=== PATIENT | male | born 1955 | race Caucasian/White ===

== ENCOUNTER 2017-06-28 07:03 | Emergency (ER) | payer BC ==
--- NOTE | 2017-06-28 07:10 | ERNOTE ---
<TristinChloé - Last Filed: 06/28/17 07:32> Medical Problem HPI - General Time Seen by Provider: 06/28/17 07:05 Source: patient Exam Limitations: no limitations - Immun/Allergies/Home Medications Allergies/Adverse Reactions: Allergies Penicillins Allergy (Verified 06/28/17 07:22) Sulfa (Sulfonamide Antibiotics) Allergy (Verified 06/28/17 07:22) Home Medications: HOME MEDICATIONS Calcium Carbonate [Calcium] 1,200 mg PO BID 11/25/14 [Last Taken Unknown] Cholecalciferol (Vitamin D3) [Vitamin D] 4,000 unit PO BID 11/25/14 [Last Taken Unknown] Simvastatin [Zocor] 40 mg PO DAILY 11/25/14 [Last Taken Unknown] Omeprazole 20 mg PO DAILY 08/23/15 [Last Taken Unknown] Prednisone 2.5 mg PO DAILY 08/23/15 [Last Taken Unknown] Cyanocobalamin (Vitamin B-12) [Vitamin B12] 1,000 mcg PO DAILY 06/28/17 [Last Taken Unknown] Etanercept [Enbrel] 50 mg SQ DAILY 06/28/17 [Last Taken Unknown] Folic Acid 1 mg PO DAILY 06/28/17 [Last Taken Unknown] Hydroxychloroquine Sulfate [Plaquenil] 200 mg PO DAILY 06/28/17 [Last Taken Unknown] Methotrexate Sodium [Methotrexate] 2.5 mg PO DAILY 06/28/17 [Last Taken Unknown] Ondansetron [Zofran Odt] 4 mg PO Q6H PRN 5 Days #20 tab 06/28/17 [Last Taken Unknown] sulfaSALAzine [Azulfidine] 500 mg PO BID 06/28/17 [Last Taken Unknown] traMADol HCL [Tramadol HCl] 50 mg PO TID 7 Days #10 tablet 06/28/17 [Last Taken Unknown] - History of Present History Narrative: Patient presents to the emergency room via private vehicle with complaint of chest pain in the substernal region without any radiation which began at 0600 today. He just started Enbrel for rheumatoid arthritis he denies any shortness of breath palpitations or diaphoresis Review of Systems - Review of Systems Constitutional: Present: no symptoms reported EYE: Present: no symptoms reported ENT: Present: no symptoms reported Respiratory: Present: no symptoms reported Cardiology: Present: See HPI Gastrointestinal/Abdominal: Present: no symptoms reported Genitourinary: Present: no symptoms reported - Patient's Past Medical History Patient History - Medical: No pertinent hx Patient History - Cancer: No Hx of Cancer Patient History - Surgical Procedures: Other - Hernia repair, Hyperparathyroids removed, pacemaker. - Social History Living Situations: spouse Alcohol Use: none Physical Exam - Physical Exam General Appearance: Present: wd/wn, alert, no apparent distress Head Exam: Present: normal inspection, no evidence of injury Ears, Nose, Throat: Present: normal ENT inspection Neck: Present: normal inspection, nontender Respiratory: Present: no respiratory distress, normal breath sounds, no accessory muscle use, chest nontender, lungs clear Cardiovascular/Chest: Present: regular rate, rhythm, no murmur, normal peripheral pulses ED Progress - Vital Signs Patient's Vital Signs:: I have reviewed the patient's vital signs. - Transfer of Care Physician Sign Out: Chloé Crow Receiving Physician: Jaci Salas Departure - Departure Clinical Impression: Cholelithiasis with acute cholangitis without biliary obstruction Chest pain Qualifiers: Chest pain type: other chest pain Qualified Code(s): R07.89 - Other chest pain ; R07.8 - Other chest pain Disposition: Home self-care Condition: Stable Instructions: Cholelithiasis Additional Instructions: you are scheduled at 7 am on Friday morning you are to have nothing to eat or drink prior to the test in the morning. Referrals: Cheko Gonzalez MD [Primary Care Provider] - Joseluis Rodrigues MD [Staff Physician] - 07/02/17 (call for appointment time on Friday ) Prescriptions: Ondansetron [Zofran Odt] 4 mg PO Q6H PRN 5 Days #20 tab PRN Reason: nausea traMADol HCL [Tramadol HCl] 50 mg PO TID 7 Days #10 tablet <Jaci Salas - Last Filed: 06/28/17 13:56> Medical Problem HPI - Narrative Date of Service: 06/28/17 ED Progress - Date and Time Seen: Date and Time: 06/28/17 09:49 Patient seen and re-examined. - Results and Orders Patient's Lab Results:: I have reviewed the patient's lab results. Results and Orders: Laboratory Tests 06/28/17 06/28/17 06/28/17 07:08 07:15 07:15 WBC 6.3 RBC 4.61 L Hgb 14.3 Hct 43.2 MCV 93.7 MCH 31.0 MCHC 33.1 RDW 13.2 Plt Count 227 MPV 10.3 H Immature Gran % (Auto) 1.40 H Immature Gran # (Auto) 0.09 H Neutrophils % 64.4 Lymphocytes % 19.5 L Monocytes % 11.5 H Eosinophils % 2.4 Basophils % 0.8 Nucleated RBC % 0.0 Neutrophils # 4.0 Lymphocytes # 1.2 L Monocytes # 0.7 Eosinophils # 0.2 D-Dimer Sodium 145 H Plasma Sodium 145 H Potassium 3.9 Chloride 107 H Anion Gap 15.5 H BUN 24 H Creatinine 1.28 Est GFR (Non-Af Amer) 61 D BUN/Creatinine Ratio 18.8 Random Glucose 128 H Calcium 8.4 Calcium Adj for Albumin 8.4 Total Bilirubin 0.3 AST 21 ALT 15 L Alkaline Phosphatase 63 Troponin I Less than 0.017 Total Protein 6.8 Albumin 3.6 TSH 1.782 06/28/17 07:15 WBC RBC Hgb Hct MCV MCH MCHC RDW Plt Count MPV Immature Gran % (Auto) Immature Gran # (Auto) Neutrophils % Lymphocytes % Monocytes % Eosinophils % Basophils % Nucleated RBC % Neutrophils # Lymphocytes # Monocytes # Eosinophils # D-Dimer 0.37 Sodium Plasma Sodium Potassium Chloride Anion Gap BUN Creatinine Est GFR (Non-Af Amer) BUN/Creatinine Ratio Random Glucose Calcium Calcium Adj for Albumin Total Bilirubin AST ALT Alkaline Phosphatase Troponin I Total Protein Albumin TSH - Vital Signs Vital Signs: Vital Signs 06/28/17 06/28/17 06/28/17 07:12 07:20 07:28 Temperature 34.0 C L Pulse Rate 78 77 82 Respiratory 16 12 Rate Blood Pressure 142/77 137/85 O2 Sat by Pulse 100 99 Oximetry 06/28/17 06/28/17 06/28/17 07:48 08:26 08:55 Temperature Pulse Rate 70 74 69 Respiratory 14 12 17 Rate Blood Pressure 122/75 105/71 110/68 O2 Sat by Pulse 99 99 96 Oximetry 06/28/17 06/28/17 09:25 09:38 Temperature Pulse Rate 77 68 Respiratory 12 12 Rate Blood Pressure 140/80 142/85 O2 Sat by Pulse 99 100 Oximetry - X-Ray X-Ray #1 Interpretation: Reviewed by me X-ray Comments: report reviewed as below COMPARISONS: 02/19/2015 FINDINGS: Chest Single View *: Patient has a dual-chamber pacemaker, with grossly intact and stable appearance of the leads. Generator overlying the left upper chest. Hyperinflated lungs, stable. No definite consolidation. Small calcified granuloma the periphery of the right upper lung, stable. Pulmonary vasculature is normal. No pneumothorax or pleural fluid collections apparent. Cardiac and mediastinal silhouettes are normal for technique. Trachea is in normal position given patient positioning. Osseous structures are grossly intact. IMPRESSION: 1. No focal acute cardiopulmonary findings. 2. Stable findings are as above. Electronically signed by Crispin Nieto M.D.. Crispin Nieto MD Dict: 06/28/17 0757 Typed: 06/28/17 0757/ Plan - Plan Plan: Discussed plans and results of disposition with the family and patient. Patient will be rate referred to Dr. RODRIGUES: Patient has significant 1.8 cm gallbladder stone at the neck patient will have an outpatient ultrasound scheduled for June 30 and follow-up appointment with the general surgeon he is instructed to call in the morning for the appointment. I called Dr. Rodrigues with the referral he stated he will follow up with patient.
[2017-06-28] MEDS ORDERED: ASPIRIN 81 MG TAB.CHEW PO ONE (07:14)
[2017-06-28] MEDS ORDERED: ASPIRIN 81 MG TAB.CHEW ONE (07:14)
[2017-06-28] MEDS: NITROGLYCERIN 0.4 MG/TAB BTL SL ONE ×2 (07:20→07:22)
[2017-06-28 07:21] LABS: Hematocrit 43.2 % (42.0-52.0); Hemoglobin 14.3 gm/dL (13.5-18.0); Mean Cell Volume 93.7 fl (78-100); Mean Corpuscular Hgb Conc 33.1 g/dl (32-36); Mean Platelet Volume 10.3 fl (6.0-9.5); Neutrophil % 64.4 % (42-75.0); Platelet Count 227 K/mm3 (150-450); Red Blood Count 4.61 M/mm3 (4.7-6.0); Red Cell Distribution Width 13.2 % (11.5-14.0); White Blood Count 6.3 K/mm3 (4.0-10.5)
[2017-06-28 07:38] LABS: ALT 15 U/L (19-67); AST 21 U/L (0-48); Albumin * 3.6 gm/dl (3.4-5.0); Alkaline Phosphatase * 63 U/L (50-170); Anion Gap 15.5 mmol/L (6.8-13.8); BUN/Creatinine Ratio 18.8 (9.0-21.6); Bilirubin, Total 0.3 mg/dL (0.0-1.1); Blood Urea Nitrogen 24 mg/dL (6-23); Ca. Corrected For Albumin 8.4 mg/dL (8.4-10.2); Calcium * 8.4 mg/dL (7.9-10.9); Carbon Dioxide 26.4 mmol/L (24-32.6); Chloride 107 mmol/L (97-106); Glucose * 128 mg/dL (70-110); Potassium 3.9 mmol/L (3.4-4.6); Sodium 145 mmol/L (132-142); Total Protein 6.8 gm/dL (6.2-8.2)
[2017-06-28 07:41] LABS: Troponin I Less than 0.017 ng/ml (0.00-0.10)
[2017-06-28] MEDS ORDERED: FAMOTIDINE 10 MG/ML VIAL IV ONE ×2 (09:47→09:48)
[2017-06-28] MEDS ORDERED: ONDANSETRON HCL/PF 2 MG/ML VIAL IV ONE (09:55)
[2017-06-28] MEDS ORDERED: MORPHINE SULFATE 2 MG/ML DISP.SYRIN IV ONE ×2 (09:56→09:57)
[2017-06-28] MEDS ORDERED: MORPHINE SULFATE 2 MG/ML DISP.SYRIN ONE (09:57)
[2017-06-28] MEDS ORDERED: ONDANSETRON HCL/PF 2 MG/ML VIAL ONE (09:57)
[2017-06-28 13:04] VITALS: BP 136/74
== END 2017-06-28 13:57 | disposition home or self-care (01) ==
LOC: ER 07:03
DX: K80.80 Other cholelithiasis without obstruction (principal); K83.0 Cholangitis; R07.89 Other chest pain
CPT/HCPCS: 36415; 71010; 71275; 74175; 80053; 84443; 84484; 85025; 85379; 93005; 96374; 96375; 99284; J2405